=== PATIENT | female | born 1985 | race Caucasian/White ===

== ENCOUNTER 2019-05-11 15:54 | Outpatient (CLI) | payer BC ==
--- NOTE | 2019-05-11 16:37 | ULT ---
Venous duplex sonogram right lower extremity HISTORY: Right leg pain and edema. FINDINGS: The right common femoral vein and greater saphenous junction were evaluated along with the femoral, deep femoral, popliteal, and posterior tibial veins. There is good color and spectral Doppler flow, compression, and augmentation. IMPRESSION: Normal exam.
== END 2019-05-11 15:55 | disposition home or self-care (01) ==
LOC: ULT 15:54
PROVIDERS: ATTEND Family Medicine
DX: M79.605 Pain in left leg (principal)

== ENCOUNTER 2023-12-26 15:06 | Outpatient (CLI) | payer BC | END 2023-12-26 15:07 | disposition home or self-care (01) | LOC: ULT 15:06 | PROVIDERS: ATTEND Family Medicine | DX: M79.605 Pain in left leg (principal); G62.9 Polyneuropathy, unspecified | CPT/HCPCS: 72100 ==